=== PATIENT | female | born 1965 | race Caucasian/White ===

== ENCOUNTER 2016-11-16 19:26 | Emergency (ER) | payer SELFPAY ==
[~2016-11-16 19:26] MED LIST: ASPIRIN EC81 MG PO; CELEBREX100 MG PO; HABITROL DPS21 MG TD; HEARTBURN RELIE75 MG PO; HYDROCODONE 7.7.5 MG PO; IMODIUM DPS2 MG PO; IRON325 M1 PO; KLONOPIN DPS1 MG PO; LEXAPRO DPS20 MG PO; NEURONTIN DPS400 MG PO; NEURONTIN DPS600 MG PO; PROTONIX40 MG PO; SENOKOT S1 TAB PO; THERA1 EACH PO; WELLBUTRIN XL300 MG PO
--- NOTE | 2016-11-28 14:39 | ER ---
ADMIT: 11/16/2016 RM/LOC: ER [facility] MR#: [id number] [facility] [address] [place], [place] [id number] ESTELITA MONROY [address] [place] [address] Emergency Room Report SEX: F AGE: 51 : 1965 DATE: 11/16/2016 CHIEF COMPLAINT: Low back pain. HISTORY OF PRESENT ILLNESS: This is a 51-year-old female who has had a history of back pain. In fact, she had a fusion of L5-S1 years ago. Has not had really any issues yet and then she had a knee surgery done back in July and she said she has just had some issue since then. Today, she comes to the ER because of excruciating pain. I did do an x-ray, it is negative for any acute findings, over-read by Dr. Ayala. I gave her Toradol here in the emergency room, it did not help with pain. The patient admits to having narcotic abuse issue. I am going to discuss with daughter if mother allows me her care. This patient says that she will have her daughter dispense her pain medications if I prescribe them to her. CLINICAL IMPRESSION: Acute on chronic low back pain. DISPOSITION: Stable at discharge. PLAN: Again, I will discuss with daughter and patient our source of medication for pain control. TEE Alfaro / Terrell Ayala MD / andrew JOB #: [id number] CC: Terrell Ayala MD, Attending Physician Zack Berkowitz MD, Family Physician
== END 2016-11-16 21:20 | disposition home or self-care (01) ==
LOC: ER 19:26
DX: G89.29 Other chronic pain (principal); M54.5 Low back pain; F17.210 Nicotine dependence, cigarettes, uncomplicated; Z88.0 Allergy status to penicillin; Z79.899 Other long term (current) drug therapy